=== PATIENT | female | born 1955 | race Caucasian/White ===

== ENCOUNTER → 2016-06-06 | Outpatient (CLI) | payer BC ==
[~2016-06-06] MED LIST: ALL180; ATOR10TA88; B COMPLEX; BUPR-79; CALC-51; ESCI10TA17; IBUP-1050; IRON; LEVO112T18; MOME50SP5; MULTI VIT; OPTIRAY 320 IV PRN; PROGESTERONE CREAM; [UNRECOGNIZED DRUG - REMARK]
--- NOTE | 2016-06-06 12:20 | DIAGNOSTIC IMAGING REPORT ---
ABDOMEN AND PELVIS CT EXAMINATION PRE AND POST INTRAVENOUS CONTRAST CT DOSE: 741.87 mGy.cm HISTORY: Pain. CHANGE IN STOOL TECHNIQUE: Multiaxial CT images of the abdomen and pelvis were performed pre and post intravenous contrast enhancement. COMPARISON STUDY: None. FINDINGS: The lung bases are clear. The liver, spleen, gallbladder, pancreas, kidneys, and adrenal glands are within normal limits. No bowel wall thickening or obstruction. The pelvic organs are unremarkable. No suspicious lytic or blastic osseous lesions. IMPRESSION: No significant abnormality identified within the abdomen or pelvis. Negative study of the liver Electronically signed by: Tahir Cintron M.D. 06/06/2016 12:19 PM Dictated Date/Time: 06/06/2016 12:16 PM
== END | disposition home or self-care (01) ==
LOC: C.CTS 11:06
PROVIDERS: ATTEND Internal Medicine Gastroenterology
DX: R19.4 Change in bowel habit (principal)

== ENCOUNTER → 2016-07-26 | Outpatient (CLI) | payer BC ==
[~2016-07-26] MED LIST changes: +ATOR10TA82; -ATOR10TA88; -OPTIRAY 320 IV PRN
== END | disposition home or self-care (01) ==
LOC: C.PAPS 08:22
PROVIDERS: ATTEND Obstetrics & Gynecology
DX: Z01.419 Encounter for gynecological examination (general) (routine) without abnormal findings (principal)

== ENCOUNTER → 2016-09-16 | Outpatient (CLI) | payer BC ==
[~2016-09-16] MED LIST changes: -ATOR10TA82; +ATOR10TA88
--- NOTE | 2016-09-19 12:37 | MAMMOGRAPHY REPORT ---
BILATERAL DIGITAL SCREENING MAMMOGRAM TOMOSYNTHESIS WITH CAD: 09/16/2016 CLINICAL HISTORY: Routine screening. TECHNIQUE: Breast tomosynthesis in addition to standard 2D mammography was performed. Current study was also evaluated with a Computer Aided Detection (CAD) system. COMPARISON: Comparison is made to exams dated: 05/16/2014 mammogram, 04/19/2013 mammogram, 03/30/2012 m ammogram, 12/30/2011 mammogram, 03/24/2011 mammogram, and 03/16/2010 mammogram - [facility]. BREAST COMPOSITION: The tissue of both breasts is heterogeneously dense, which may obscure small mas ses. FINDINGS: No suspicious masses, calcifications, or areas of architectural distortion are noted in ei ther breast. There has been no significant interval change compared to prior exams. Linear scar carlo ers denote scars on bilateral superior breasts. Benign-appearing left breast calcifications are stab le. IMPRESSION: ACR BI-RADS CATEGORY 2: BENIGN There is no mammographic evidence of malignancy. A 1 year screening mammogram is recommended. The pa tient will receive written notification of the results. Approximately 10% of breast cancers are not detected with mammography. A negative mammographic report should not delay biopsy if a clinically suggestive mass is present. Narda Wright M.D. ah/:09/16/2016 15:38:20 Life Skills Coordinator Volunteer: Mamta WOLFE(Martha)(M), [facility] letter sent: Normal 1/2 BI-RADS Code: ACR BI-RADS Category 2: Benign
== END | disposition home or self-care (01) ==
LOC: C.MAMM 13:36
PROVIDERS: ATTEND Obstetrics & Gynecology
DX: Z12.31 Encounter for screening mammogram for malignant neoplasm of breast (principal)

== ENCOUNTER → 2017-06-23 | Outpatient (CLI) | payer OTHER ==
[~2017-06-23] MED LIST changes: +ATOR10TA82; -ATOR10TA88
== END | disposition home or self-care (01) ==
LOC: C.LAB 08:00
PROVIDERS: ATTEND Family Medicine
DX: E16.2 Hypoglycemia, unspecified (principal)

== ENCOUNTER → 2017-10-26 | Outpatient (CLI) | payer OTHER | END | disposition home or self-care (01) | LOC: C.PAPS 13:56 | PROVIDERS: ATTEND Obstetrics & Gynecology | DX: Z01.419 Encounter for gynecological examination (general) (routine) without abnormal findings (principal); N95.2 Postmenopausal atrophic vaginitis ==